=== PATIENT | male | born 1965 ===

== ENCOUNTER 2018-12-26 09:05 | Outpatient (CLI) | payer BC ==
[2018-12-26 11:32] LABS: Chol/HDL Ratio 2.91 %
== END 2018-12-26 09:06 | disposition home or self-care (01) ==
LOC: LAB 09:05
PROVIDERS: ATTEND Internal Medicine
DX: I10 Essential (primary) hypertension (principal); E11.9 Type 2 diabetes mellitus without complications; E78.5 Hyperlipidemia, unspecified; E55.9 Vitamin D deficiency, unspecified
CPT/HCPCS: 36415; 80061; 82306; 83036

== ENCOUNTER 2019-05-15 08:51 | Outpatient (CLI) | payer BC ==
[2019-05-15 10:39] LABS: Chol/HDL Ratio 3.97 %
[2019-05-18 13:05] LABS: Vitamin D, 25-OH, D2 <4 ng/mL
== END 2019-05-15 08:52 | disposition home or self-care (01) ==
LOC: LAB 08:51
PROVIDERS: ATTEND Internal Medicine
DX: E11.9 Type 2 diabetes mellitus without complications (principal); E78.5 Hyperlipidemia, unspecified; E55.9 Vitamin D deficiency, unspecified
CPT/HCPCS: 36415; 80061; 82306; 83036